=== PATIENT | male | born 1955 | race Caucasian/White ===

== ENCOUNTER → 2023-06-28 09:12 | Outpatient (REF) | payer OTHER, SELFPAY | LOC: DHCBS MAIN 09:12 | PROVIDERS: ATTENDING PHYSICIAN Internal Medicine Cardiovascular Disease; FAMILY PHYSICIAN Internal Medicine | DX: R06.09 Other forms of dyspnea (principal); R07.89 Other chest pain | CPT/HCPCS: 93306 ==